=== PATIENT | female | born 1980 ===

== ENCOUNTER 2018-07-02 10:01 | Outpatient (CLI) | payer OTHER ==
[~2018-07-02] VITALS: Ht 167.6 cm; Wt 59.0 kg
== END 2018-07-02 11:19 | disposition home or self-care (01) ==
LOC: OFIC 805 10:01
DX: R09.81 Nasal congestion (principal); R19.6 Halitosis

== ENCOUNTER 2019-04-04 12:20 | Inpatient (IN) | payer OTHER ==
[~2019-04-04] VITALS: Ht 167.6 cm; Wt 71.7 kg
[2019-04-29] MEDS ORDERED: PRENATAL ONE T1 EAC1 PO (17:04)
== END 2019-05-02 11:57 | disposition home or self-care (01) | DRG 807 ==
LOC: OB/GYN 04-10 15:15 → LDR 04-29 16:25 → OB/GYN 04-29 16:25
PROVIDERS: ADMIT Obstetrics & Gynecology
PROC: 3E0P7VZ Introduction of Hormone into Female Reproductive, Via Natural or Artificial Opening (ICD-10-PCS; 2019-04-29)
PROC: 4A1HXCZ Monitoring of Products of Conception, Cardiac Rate, External Approach (ICD-10-PCS; 2019-04-29)
PROC: 10E0XZZ Delivery of Products of Conception, External Approach (ICD-10-PCS; principal; 2019-04-30)
PROC: 0UQMXZZ Repair Vulva, External Approach (ICD-10-PCS; 2019-04-30)
PROC: 3E033VJ Introduction of Other Hormone into Peripheral Vein, Percutaneous Approach (ICD-10-PCS; 2019-04-30)
PROC: 10907ZC Drainage of Amniotic Fluid, Therapeutic from Products of Conception, Via Natural or Artificial Opening (ICD-10-PCS; 2019-04-30)
DX: O70.0 First degree perineal laceration during delivery (principal); Z37.0 Single live birth; Z3A.40 40 weeks gestation of pregnancy

== ENCOUNTER 2019-04-25 07:56 | Outpatient (CLI) | payer OTHER | END 2019-04-25 09:19 | disposition home or self-care (01) | LOC: NST 07:56 | DX: Z34.83 Encounter for supervision of other normal pregnancy, third trimester (principal) ==